=== PATIENT | female | born 1970 | race Caucasian/White ===

== ENCOUNTER → 2019-10-17 08:59 | Outpatient (CLI) | payer OTHER, SELFPAY ==
--- NOTE | ~2019-10-17 | MM_ITS ---
EXAMINATION: MM screening [facility] BI w boyd HISTORY: Screening mammogram TECHNIQUE: Craniocaudal and mediolateral oblique 3-D tomosynthesis images were obtained and synthetic 2-D images were generated. CAD analysis was submitted and interpreted. COMPARISON: No prior mammogram is available for comparison at this institution. BREAST PARENCHYMAL COMPOSITION: The breasts are heterogeneously dense, which may obscure small masses . FINDINGS: There is a focal asymmetry in the upper outer quadrant of the right breast. There is no [facility] mographic evidence for malignancy in the left breast. IMPRESSION: 1. Focal right breast asymmetry, upper outer quadrant. 2. Additional mammographic views and possible breast ultrasound are recommended. BI-RADS Category 0: Incomplete: Needs additional imaging evaluation. Reviewed, dictated and finalized at location A. IMPRESSION: 1. Focal right breast asymmetry, upper outer quadrant. 2. Additional mammographic views and possible breast ultrasound are recommended . BI-RADS Category 0: Incomplete: Needs additional imaging evaluation.
== END ==
PROVIDERS: Visit Provider Obstetrics & Gynecology
DX: Z12.31 Encounter for screening mammogram for malignant neoplasm of breast (principal); R92.8 Other abnormal and inconclusive findings on diagnostic imaging of breast
CPT/HCPCS: 77063; 77067

== ENCOUNTER → 2019-11-01 09:35 | Outpatient (CLI) | payer OTHER, SELFPAY ==
--- NOTE | ~2019-11-01 | MMUS_ITS ---
EXAMINATION: MM diagnostic mammo unilat RT, US breast RT limited HISTORY: Right breast asymmetry on the craniocaudal view on screening mammography TECHNIQUE: Additional 3-D tomosynthesis images of the right breast were performed and synthetic 2-D i mages were generated. CAD analysis was submitted and interpreted. High resolution limited right breas t ultrasound was performed. COMPARISON: 10/17/2019, 08/13/2017, 07/28/2016, 07/31/2015 FINDINGS: MAMMOGRAPHIC FINDINGS: There is a 6 mm obscured, equal density mass in the middle/posterior third of the breast at the 10:00 location 8 cm from the nipple. No suspicious architectural distortion or calcification are identifie d. ULTRASOUND: There is a 6 mm round cyst at the 9:00 location 8 cm from the nipple corresponding to the mammographi c finding in question. There is also a 4 mm cyst at the 8:00 location 6 cm from the nipple. A 5 mm ov al, circumscribed, parallel, hypoechoic mass with no posterior features or internal vascularity is se en at the 9:00 location 6 cm from the nipple. There is a 5 mm x 4 mm mass with similar sonographic fe atures at the 10:00 location 6 cm from the nipple. IMPRESSION: 1. Probably benign right breast masses. 2. Recommend 6 month follow-up right diagnostic mammogram and ultrasound. BI-RADS category 3, probably benign findings. Reviewed, dictated and finalized at location A. IMPRESSION: 1. Probably benign right breast masses. 2. Recommend 6 month follow-up right diagnostic mammogram and ultrasound. BI-RADS category 3, probably benign findings.
== END ==
PROVIDERS: Visit Provider Obstetrics & Gynecology
DX: N64.89 Other specified disorders of breast (principal); R92.8 Other abnormal and inconclusive findings on diagnostic imaging of breast
CPT/HCPCS: 76642; 77065

== ENCOUNTER → 2020-08-24 14:21 | Outpatient (CLI) | payer OTHER, SELFPAY ==
--- NOTE | ~2020-08-24 | MMUS_ITS ---
EXAMINATION: MM diagnostic [facility] BI w boyd, US breast RT limited HISTORY: Follow-up right breast masses TECHNIQUE: Additional 3-D tomosynthesis images of the breasts were performed and synthetic 2-D images were generated. CAD analysis was submitted and interpreted. High resolution Limited right breast ult rasound was performed. COMPARISON: Comparison to multiple prior studies sequentially, with oldest reviewed study dated 07/17. BREAST PARENCHYMAL COMPOSITION: The breasts are heterogenously dense, which may obscure small masses. FINDINGS: MAMMOGRAPHIC FINDINGS: There are no suspicious masses, calcifications or architectural distortion in either breast to sugges t malignancy. ULTRASOUND: Limited right breast ultrasound: At 10:00, 6 cm from the nipple, there is a 7 mm cyst. At 8:00, 6 cm from the nipple, there is a 3 mm cyst. No suspicious masses to suggest malignancy. IMPRESSION: 1. No evidence for malignancy in either breast. 2. Routine yearly screening mammogram and regular clinical breast examination are recommended. BI-RADS Category 2: Benign finding(s). Reviewed, dictated and finalized at location A. IMPRESSION: 1. No evidence for malignancy in either breast. 2. Routine yearly screening mammogram and regular clinical breast examination a re recommended. BI-RADS Category 2: Benign finding(s).
== END ==
PROVIDERS: Visit Provider Obstetrics & Gynecology
DX: N63.10 Unspecified lump in the right breast, unspecified quadrant (principal)
CPT/HCPCS: 76642; 77062; 77066; G0279

== ENCOUNTER → 2023-01-09 15:08 | Outpatient (CLI) | payer OTHER, SELFPAY ==
--- NOTE | ~2023-01-09 | MM_ITS ---
EXAMINATION: MM screening [facility] BI w boyd HISTORY: Screening TECHNIQUE: Craniocaudal and mediolateral oblique 3-D tomosynthesis images were obtained and synthetic 2-D images were generated. CAD analysis was submitted and interpreted. COMPARISON: Comparison to multiple prior studies sequentially, with oldest reviewed study dated 07/30. BREAST PARENCHYMAL COMPOSITION: Breast composed of scattered areas of fibroglandular density FINDINGS: The left breast is stable without evidence for malignancy. There is a new focal asymmetry i n the lower outer quadrant of the right breast, middle third. IMPRESSION: 1. New focal asymmetry lower outer quadrant of the right breast. 2. Additional mammographic views and possible breast ultrasound are recommended. BI-RADS Category 0: Incomplete: Needs additional imaging evaluation. Reviewed, dictated and finalized at location A. IMPRESSION: 1. New focal asymmetry lower outer quadrant of the right breast. 2. Additional mammographic views and possible breast ultrasound are recommended . BI-RADS Category 0: Incomplete: Needs additional imaging evaluation.
== END ==
PROVIDERS: PCP Obstetrics & Gynecology Gynecology; Visit Provider Obstetrics & Gynecology Gynecology
DX: Z12.31 Encounter for screening mammogram for malignant neoplasm of breast (principal); R92.8 Other abnormal and inconclusive findings on diagnostic imaging of breast
CPT/HCPCS: 77063; 77067

== ENCOUNTER → 2023-02-05 08:50 | Outpatient (CLI) | payer OTHER, SELFPAY ==
--- NOTE | ~2023-02-05 | MMUS_ITS ---
EXAMINATION: MM diagnostic liat RT w boyd, US breast RT complete HISTORY: Follow-up right breast asymmetry TECHNIQUE: Additional 3-D tomosynthesis images of the right breast were performed and synthetic 2-D i mages were generated. CAD analysis was submitted and interpreted. High resolution complete right juan st ultrasound was performed. COMPARISON: Comparison to multiple prior studies sequentially, with oldest reviewed study dated 10/31. BREAST PARENCHYMAL COMPOSITION: The breasts are heterogeneously dense, which may obscure small masses FINDINGS: MAMMOGRAPHIC FINDINGS: There is a persistent focal asymmetry in the lower outer quadrant of the right breast, middle third. There are no suspicious calcifications or architectural distortion. ULTRASOUND: Complete US of all 4 quadrants of the right breast and retroareolar region was reviewed. At 12:00, 5 cm from the nipple, there is a 8 mm cyst. At 8:00, 5 cm from the nipple, there is a 3 mm cyst. At 8:0 0, 6 cm from the nipple there is an oval hypoechoic heterogeneous mass with internal cystic changes m easuring 1.5 x 0.7 x 1.2 cm. This is in the area corresponding to the mammographic finding. At 10:00, 9 cm from the nipple, there is 8 mm intramammary lymph node. There is an adjacent 1.2 cm lymph node. IMPRESSION: 1. Hypoechoic 1.5 cm right breast mass at 8:00, 6 cm from the nipple corresponding to the mammographi c finding. 2. Recommend ultrasound-guided right breast biopsy. BI-RADS category 4, suspicious findings. Reviewed, dictated and finalized at location A. IMPRESSION: 1. Hypoechoic 1.5 cm right breast mass at 8:00, 6 cm from the nipple correspond ing to the mammographic finding. 2. Recommend ultrasound-guided right breast biopsy. BI-RADS category 4, suspicious findings.
== END ==
PROVIDERS: PCP Obstetrics & Gynecology Gynecology; Visit Provider Obstetrics & Gynecology Gynecology
DX: N63.13 Unspecified lump in the right breast, lower outer quadrant (principal)
CPT/HCPCS: 76641; 77061; 77065; G0279

== ENCOUNTER → 2023-04-25 10:21 | Outpatient (CLI) | payer OTHER, SELFPAY ==
--- NOTE | ~2023-04-25 | US_ITS ---
Pelvic ultrasound. Clinical History: Abnormal uterine bleeding Technique: Realtime transabdominal and transvaginal scanning of the pelvis was performed. Color flow Doppler and Doppler spectral analysis were performed. Findings: The uterus is anteverted, and measures 10.0 x 4.4 x 5.5 cm. The endometrial stripe has a t hickness of 7 mm. Questionable ill-defined anterior wall fibroid measuring 2.6 cm in diameter. Cervic al nabothian cysts are present. Neither ovary seen. No adnexal mass seen. There is no evidence of free fluid in the cul de sac. Impression: Questionable ill-defined 2.6 cm anterior wall fibroid. Reviewed, dictated and finalized at location . [employer] Impression: Questionable ill-defined 2.6 cm anterior wall fibroid.
== END ==
PROVIDERS: PCP Nurse Practitioner; Visit Provider Nurse Practitioner
DX: N93.8 Other specified abnormal uterine and vaginal bleeding (principal)
CPT/HCPCS: 76830

== ENCOUNTER 2023-06-08 00:20 | Day surgery (SDC) | payer OTHER, SELFPAY ==
[2023-05-28 15:01] VITALS: BMI 30.7
--- NOTE | 2023-05-28 15:09 | SUR.PREOP ---
Report to the Outpatient Waiting Room, entrance under the green pavilion located off [facility], at time 0800 on date 06/08/23. Planned Procedure Time: 1000. Time changes happen often and if your time is changed the preop area will call you the afternoon before. - You and your visitor will be asked to self-screen and do not enter if you have any COVID symptoms. - A mask is optional within the hospital at this time. Patients may have clear liquids (water, carbonated beverages, clear teas, apple juice) until 3 hours prior to surgery with a maximum of 20 ounces. - No food from midnight until time of surgery 20 ounces before 0700 am - Infants may have breast milk until 4 hours before surgery, infant formula 6 hours prior to surgery. - Children will be allowed to drink immediately following surgery. If applicable, please bring a bottle or sippy cup to assist with drinking. Juice, water, soda, and popsicles are readily available. For infants on formula, please bring formula the day of surgery. Pacifiers are allowed. Take the following medications with a SIP of water the morning of surgery: n/a DO NOT STOP ANY OF YOUR OTHER PRESCRIPTION MEDICATIONS PRIOR TO SURGERY ?EXCEPT THE FOLLOWING Medications to discontinue per physician irbesartan morning of surgery Date to take last dose Please no make-up, nail cook islander, hairspray, perfume, deodorant, or body powder the day of surgery. No jewelry (including any body piercings) or valuables the day of surgery, leave them at home. Please take a shower or bath the night before, or the morning of, surgery with an antibacterial soap. Wear comfortable, loose fitting clothing. Children are encouraged to wear pajamas. - Jewelry must be removed prior to entering the operating room. Rings and piercings that are not removed may be cut off. - The hospital will not accept responsibility for valuables. - Please leave all valuables, including medications, at home the day of surgery. If you are going home after surgery, a licensed local [place] truck driver must drive you home. - NO public transportation without another adult if you receive anesthesia. - We recommend that an adult stay with you for 24 hours following discharge. - We also recommend that you do not drive, make important decision, drink alcoholic beverages, or take any drugs that were not prescribed by your health care provider for at least 24 hours after your discharge time. For Pediatric surgeries, we recommend two adults accompany the child home. Follow any additional instructions given to you from your surgeon. If you or anyone in your household have experienced Covid symptoms in the past week, please notify your surgeon or the nurse liaison at the phone number below for possible testing. Telephone instructions given to __patient__and asked if any additional questions and then verbalized understanding. Patient advised to call surgeon office or pre surgery nurse liaison [phone] if any additional questions.
[2023-06-08 07:15] VITALS: BP 180/99; PULSE 77; RESP 16; TEMP 36.4; O2SAT 100
--- NOTE | 2023-06-08 07:32 | WPDHPUPDATE1 ---
History and Physical Update Update Date/Time: 06/08/23 07:32 History and Physical has been reviewed, including an updated exam of the patient. There are NO changes in the patient's condition. Risks, benefits, and alternatives have been discussed and questions answered. Patient agrees to proceed with procedure.
--- NOTE | 2023-06-08 07:32 | PM.HPGS ---
History of Present Illness History of Present Illness Consent: Risks, benefits, and alternatives have been discussed and questions answered. Patient agrees to proceed with procedure. Chief complaint: abnormal uterine bleeding, fibroid Narrative: Jaky Messina is a 53 year old female with heavy and irregular cycles. Patient is bleeding every 2 weeks in changing her tampon every 2hours with large clots. Pelvic ultrasound reveals fibroids. It was recommended to undergo D&C hysteroscopy with possible myomectomy. Risks of infection, bleeding, perforation, and fluid imbalance are reviewed. Patient voiced understanding and agrees to proceed. Review of Systems Review of Systems: not repeated day of surgery; patient states no changes in status PMFSH Past Medical History Medical History (Updated 06/08/23 @ 07:35 by Renetta Oliveira MD) Diabetes GERD (gastroesophageal reflux disease) History of diverticulitis history of rupture HTN (hypertension) Surgical History Surgical History (Updated 06/08/23 @ 07:35 by Renetta Oliveira MD) History of x2 Social History Social History Smoking status: Never smoker Alcohol use details: socially Living arrangements: with family Meds Home Medications and Allergies Home Medications Medication Instructions Recorded Confirmed Type irbesartan 300 mg tablet 300 mg PO DAILY 05/28/23 05/28/23 History omeprazole 20 mg capsule,delayed 20 mg PO HS 05/28/23 05/28/23 History release Allergies Allergy/AdvReac Type Severity Reaction Status Date / Time No Known Allergies Allergy Unverified 06/08/23 07:29 Exam Const: General: healthy appearing and alert Orientation/consciousness: patient oriented x3 Resp: Effort & Inspection: normal respiratory effort : External Female Exam: normal external appearance Speculum Exam - Vagina: normal appearance of the vagina and normal vaginal discharge Speculum Exam - Cervix: normal appearance of the cervix Bimanual exam- vagina & uterus: consistency normal and enlarged ( approximately 10 week size) Bimanual Exam- Adnexa, other: normal adnexae and No adnexal tenderness Neuro: General: patient oriented x3 Assessment and Plan Assessment and plan (1) Menorrhagia: Code(s): N92.0 - Excessive and frequent menstruation with regular cycle Status: Acute Assessment and Plan: plan to proceed with D&C hysteroscopy with possible myomectomy
[2023-06-08] MEDS: ACETAMINOPHEN 500 MG TABLET 1000 MG PO (07:46)
[2023-06-08] MEDS: LACTATED RINGERS 1,000 ML 30 ML IV CONT (07:59)
[2023-06-08 08:20] VITALS: BP 158/91
--- NOTE | 2023-06-08 08:43 | P.PNAN_ITS ---
Anes - Initial Pre Proc Eval Procedure: Operation Date: 06/08/23 09:15 Proposed Procedures p Hysteroscopy Dilation and Curettage - Renetta Oliveira MD Date/Time: 06/08/23 08:43 Surgeon: Renetta Oliveira MD Pre Op Diagnosis: abnormal uterine bleeding, fibroid Patient Data Age: 53 Gender: F Height: 1.52 m Weight: 69 kg Last Vital Signs Temp 36.4 C 06/08/23 07:15 Pulse 77 06/08/23 07:15 Resp 16 06/08/23 07:15 BP 158/91 H 06/08/23 08:20 Pulse Ox 100 06/08/23 07:15 O2 Del Method Room Air 06/08/23 07:15 Allergies Allergy/AdvReac Type Severity Reaction Status Date / Time No Known Allergies Allergy Unverified 06/08/23 07:29 Home Medications Medication Instructions Recorded Confirmed Type irbesartan 300 mg tablet 300 mg PO DAILY 05/28/23 06/08/23 History omeprazole 20 mg capsule,delayed 20 mg PO HS 05/28/23 06/08/23 History release Patient hx anesthesia problems: none Family hx anesthesia problems: none Results Review: All pre-operative results and documents have been reviewed as part of the pre- operative evaluation. [facility]LY [facility] Past Medical History Medical History Diabetes GERD (gastroesophageal reflux disease) History of diverticulitis history of rupture HTN (hypertension) Surgical History Surgical History History of x2 Social History Social History Smoking status: Never smoker Alcohol use details: socially Living arrangements: with family Anes - Eval Final PreProcedure Day of Procedure 06/08/23 08:43 Patient weight: overweight Heart: regular rate and rhythm Lungs: clear to auscultation Airway: Mallampati scale class II Neurological: alert and oriented Last oral intake: >/= 8 hours ASA classification: III Emergent: no Anesthetic plan: proceed Anesthesia type and monitoring: general GIVS and standard monitoring Results Review: All pre-operative results and documents have been reviewed as part of the pre- operative evaluation. Informed Consent: The patient's anesthetic plan and its attendant risks and benefits were discussed with the patient/family/POA. Questions were solicited and answers provided to the satisfaction of the patient/family/POA.
--- NOTE | 2023-06-08 09:22 | P.OP_ITS ---
Procedure Note - Detailed Date of Procedure 06/08/23 Pre-op Diagnosis abnormal uterine bleeding, fibroid Post-op Diagnosis Same Procedure Performed D&C hysteroscopy Surgeon Renetta Oliveira MD Anesthesia MAC Findings the internal cervical os is very stenotic; the uterus is very anteverted; no fibroid visualized and the endometrium appears grossly normal Description of Procedure The patient is taken to the operating room and placed in the dorsal lithotomy position and placed under anesthesia. She was prepped and draped in usual sterile fashion. [place] speculum was placed in the vagina and the cervix grasped on the anterior lip with a tenaculum. Uterus is attempted to be sounded and internal cervical stenosis is encountered. Os Finders are used and the small dilators are used without success. The hysteroscope was placed and the hydro dissection allowed placement of the hysteroscope and the cavity is noted to be very anteverted. The speculum had to be removed in order to get the appropriate angle. The decision was made to use the Aveeta small resection device due to the difficulty entering the cavity. The smaller resection device is opened and placed and a generalized biopsy was taken. The hysteroscope and resection device are removed. The uterus is then sounded following the now known path and the uterus sounded to 8cm. The OO sharp curette is used to curette the endometrium until a good uterine cry was noted in all areas. All instruments are removed. Sponge, needle, and instrument counts are correct per the OR staff. The patient was taken to recovery in stable condition. Estimated Blood Loss 5 Drains No Packing No Pathology Yes ( Endometrial shavings and curettings) Complications No immediate complications Condition Stable Disposition PACU
[2023-06-08 09:24] VITALS: BP 144/91; PULSE 74; RESP 12; O2SAT 100
[2023-06-08 09:50] VITALS: BP 144/91; PULSE 74; RESP 12
[2023-06-08 10:20] VITALS: BP 154/95; PULSE 64; RESP 20
[2023-06-08 10:27] VITALS: BP 152/90; PULSE 61; RESP 20
== END 2023-06-08 10:30 | disposition home or self-care (01) ==
PROVIDERS: PCP Nurse Practitioner; Visit Provider Obstetrics & Gynecology Gynecology
PROC: 0U5B8ZZ Destruction of Endometrium, Via Natural or Artificial Opening Endoscopic (ICD-10-PCS; CPT 58563; principal; 2023-06-08 09:15)
DX: N92.0 Excessive and frequent menstruation with regular cycle (principal); E11.9 Type 2 diabetes mellitus without complications; K21.9 Gastro-esophageal reflux disease without esophagitis; I10 Essential (primary) hypertension
CPT/HCPCS: 58558; 88305; A9270; J2250; J2704; J3010; J7120